=== PATIENT | male | born 1960 | race Caucasian/White ===

== ENCOUNTER 2017-09-13 14:37 | Emergency (ER) | payer MEDICARE, MEDICAID ==
[~2017-09-13] VITALS: Ht 172.7 cm; Wt 90.7 kg
[~2017-09-13 14:37] MED LIST: AMOXICILLIN500 M1 PO; APAP500; ATENOLOL 25 MG25 M1 PO; ATENOLOL 50 MG50 M1 PO; BAYER CHEWABLE81 MG PO; CELEXA20 MG PO; CYCLOBENZAPRINE5 MG PO; FLEXERIL; FLEXERIL PO; HYDROCODON-ACE1 EAC7 PO; KEFLEX500 M1 PO; LASIX 40 MG TAB40 M1 PO; LEVAQUIN 500 M500 M2 PO; LEVOTHYROXIN0.125 M1 PO; LIORESAL 10 MG10 MG PO; LISINOPRIL10 MG PO; LISINOPRIL20 MG PO; LISINOPRIL40 MG PO; NEXIUM40 MG PO; NOHOMEMEDICATIONS; NORCO 5-325 TA1 EACH PO; NORVASC 5 MG TAB5 MG PO; NORVASC10 MG PO; OXYCONTIN60 MG PO; PERCOCET; PERCOCET 10-321 EACH; PERCOCET 5-3251 EACH PO; PERCOCET PO; PREDNISONE 20 M20 M1 PO; PROAIR HFA8.5 GM INH; ROBAXIN500 MG PO; TYLENOL EXTRA500 MG PO; VENTOLIN HFA 1818 GM INH; VICOPROFEN 2001 EACH PO; XANAX 0.25 MG0.25 MG PO; ZESTRIL20 MG PO; ZPAK PO
[2017-09-13 16:02] VITALS: BP 156/99
== END 2017-09-13 16:03 | disposition home or self-care (01) ==
LOC: M.ERS 14:37
DX: S70.01XA Contusion of right hip, initial encounter (principal); K43.9 Ventral hernia without obstruction or gangrene; G89.29 Other chronic pain; M54.9 Dorsalgia, unspecified; I10 Essential (primary) hypertension; F41.9 Anxiety disorder, unspecified; Z88.6 Allergy status to analgesic agent; Z90.49 Acquired absence of other specified parts of digestive tract; Z88.8 Allergy status to other drugs, medicaments and biological substances; W18.39XA Other fall on same level, initial encounter; Y93.89 Activity, other specified; Y92.89 Other specified places as the place of occurrence of the external cause; Y99.8 Other external cause status

== ENCOUNTER 2017-09-18 14:20 | Emergency (ER) | payer MEDICARE, MEDICAID ==
[~2017-09-18] VITALS: Ht 177.8 cm; Wt 99.8 kg
[2017-09-18] MEDS ORDERED: NORCO 5-325 TA1 EAC1 PO (15:00)
[2017-09-18 15:08] VITALS: BP 140/97
== END 2017-09-18 15:10 | disposition home or self-care (01) ==
LOC: M.ERS 14:20
DX: K64.5 Perianal venous thrombosis (principal); I10 Essential (primary) hypertension; I25.2 Old myocardial infarction; F41.9 Anxiety disorder, unspecified; G89.29 Other chronic pain; F10.99 Alcohol use, unspecified with unspecified alcohol-induced disorder; Z98.890 Other specified postprocedural states; Z98.84 Bariatric surgery status; Z96.641 Presence of right artificial hip joint; Z88.5 Allergy status to narcotic agent; Z88.8 Allergy status to other drugs, medicaments and biological substances

== ENCOUNTER 2017-09-20 13:41 | Emergency (ER) | payer MEDICARE, MEDICAID ==
[~2017-09-20] VITALS: Ht 182.9 cm; Wt 90.7 kg
[~2017-09-20 13:41] MED LIST changes: +NORCO 5-325 TA1 EAC1 PO
[2017-09-20] MEDS ORDERED: HYDROCODON-ACE1 EAC7 PO (14:35)
[2017-09-20 15:11] VITALS: BP 138/88
== END 2017-09-20 15:12 | disposition home or self-care (01) ==
LOC: M.ERS 13:41
DX: K64.5 Perianal venous thrombosis (principal); I10 Essential (primary) hypertension; I25.2 Old myocardial infarction; F41.9 Anxiety disorder, unspecified; Z98.84 Bariatric surgery status; G89.29 Other chronic pain; F10.99 Alcohol use, unspecified with unspecified alcohol-induced disorder; Z98.890 Other specified postprocedural states; Z96.641 Presence of right artificial hip joint; Z88.5 Allergy status to narcotic agent; Z88.8 Allergy status to other drugs, medicaments and biological substances

== ENCOUNTER 2017-10-06 18:12 | Emergency (ER) | payer MEDICARE, MEDICAID ==
[~2017-10-06] VITALS: Ht 177.8 cm; Wt 90.8 kg
[2017-10-06 18:47] LABS: ABSOLUTE BASOPHILS 0.1 thou/uL (0.0-0.2); ABSOLUTE EOSINOPHILS 0.2 thou/uL (0.0-0.7); ABSOLUTE LYMPHOCYTES 1.4 thou/uL (0.8-5.3); ABSOLUTE MONOCYTES 0.9 thou/uL (0.0-1.2); ABSOLUTE NEUTROPHILS 6.4 thou/uL (1.6-8.1); BASOPHILS 0.9 %; EOSINOPHILS 2.6 %; HEMATOCRIT 36.6 % (42.0-52.0); HEMOGLOBIN 11.4 gm/dL (14.0-18.0); LYMPHOCYTES 15.3 %; MCH 21.6 pg (26.0-34.0); MCHC 31.1 g/dL (28.0-37.0); MCV 69.4 fL (80.0-100.0); MONOCYTES 10.2 %; MPV 7.4 fl. (7.2-11.1); NUCLEATED RBCS 0 /100WBC; PLATELET COUNT* 282 thou/uL (150-400); RBC 5.27 mil/uL (4.50-6.00); RDW-CV 18.5 % (10.5-14.5)
[2017-10-06] MEDS ORDERED: CLONIDINE0.1 PO (18:50)
[2017-10-06 18:54] LABS: ANION GAP 10 mmol/L (7-16); BUN 15 mg/dL (7-18); CALCIUM 8.5 mg/dL (8.5-10.1); CHLORIDE 97 mmol/L (98-107); CO2 27 mmol/L (21-32); CREATININE 0.9 mg/dL (0.6-1.3); GLUCOSE 98 mg/dL (70-99); POTASSIUM 4.1 mmol/L (3.5-5.1); SODIUM 134 mmol/L (136-145)
[2017-10-06 19:08] LABS: URINE BILIRUBIN NEGATIVE (Negative); URINE BLOOD NEGATIVE (Negative); URINE CLARITY CLEAR; URINE COLOR YELLOW; URINE GLUCOSE-RANDOM NEGATIVE (Negative); URINE KETONES NEGATIVE (Negative); URINE LEUKOCYTES-REFLEX NEGATIVE (Negative); URINE NITRITE-REFLEX NEGATIVE (Negative); URINE PROTEIN NEGATIVE (Negative); URINE SPECIFIC GRAVITY 1.015 (1.005-1.030); URINE UROBILINOGEN 0.2 E.U./dl (0.2-1.0)
[2017-10-06 19:15] LABS: ALBUMIN 3.5 g/dL (3.4-5.0); ALKALINE PHOSPHATASE 103 U/L (46-116); SGOT 23 U/L (15-37); SGPT 17 U/L (30-65); TOTAL BILIRUBIN 0.9 mg/dL (<0.1-1.0); TOTAL PROTEIN 7.9 g/dL (6.4-8.2); TROPONIN-I LEVEL <0.06 ng/mL (<0.06)
[2017-10-06 19:17] LABS: AMP/METHAMP Negative (Negative); BARBITURATES Negative (Negative); BENZODIAZEPINES Negative (Negative); COCAINE Negative (Negative); METHADONE Negative (Negative); OPIATES Negative (Negative); PCP Negative (Negative); THC Negative (Negative)
[2017-10-06 19:22] LABS: ANISOCYTOSIS 1+; HYPOCHROMASIA 1+; MICROCYTES 1+; PLATELET ESTIMATE ADEQUATE
[2017-10-06] MEDS ORDERED: IBUPROFEN 800800 MG PO (20:35)
[2017-10-06] MEDS ORDERED: NORCO 5-325 TA1 EACH PO (20:35)
[2017-10-06 20:57] VITALS: BP 150/96
--- NOTE | 2017-10-07 11:02 | EKG ---
[place] [address] ELECTROCARDIOGRAM REPORT Name: RYAN ABRAHAM Room: [facility]#: [id number] Admission: 10/06/17 Attend Phys: Discharge: 10/06/17 Date of : 60 Report #: [id number] THIS REPORT FOR: //name// [facility] ED Test Date: 2017-10-06 Test Time: 18:37:41 Pat Name: RYAN ABRAHAM Department: Room: Gender: Pearl Glue Operator: William LACEY : 1960 Requested By: Josiane Wesley Order Number: [id number] MD: Christian Coe Measurements Intervals [place] Rate: 57 P: 39 MN: 196 QRS: 4 QRSD: 88 T: 125 QT: 446 QTc: 435 Interpretive Statements Sinus rhythm LVH with secondary repolarization abnormality Anterior ST elevation, probably due to LVH Baseline wander in lead(s) V2 Compared to ECG 06/17/2014 22:50:48 Left ventricular hypertrophy now present Early repolarization now present ST (T wave) deviation now present Sinus tachycardia no longer present Electronically Signed On 10-07-2017 11:02:30 DIRECTOR OF ANALYTICS by Christian Coe [email or web address] <ELECTRONICALLY SIGNED> By: Christian Coe MD, [facility] 10/07/17 1102 1837 1837 Christian Coe MD, [facility] /EPI
== END 2017-10-06 20:59 | disposition home or self-care (01) ==
LOC: M.ERS 18:12
PROVIDERS: Nurse Practitioner Family
DX: I95.1 Orthostatic hypotension (principal); M25.562 Pain in left knee; I25.2 Old myocardial infarction; I10 Essential (primary) hypertension; F41.9 Anxiety disorder, unspecified; Z86.73 Personal history of transient ischemic attack (TIA), and cerebral infarction without residual deficits; Z90.49 Acquired absence of other specified parts of digestive tract; Z96.641 Presence of right artificial hip joint

== ENCOUNTER 2018-05-06 14:59 | Inpatient (IN) | payer MEDICARE, MEDICAID ==
[~2018-05-06] VITALS: Ht 152.4 cm; Wt 108.9 kg
[~2018-05-06 14:59] MED LIST changes: +CLONIDINE0.1 PO; +IBUPROFEN 800800 MG PO
[2018-05-06 15:06] VITALS: BP 150/81
[2018-05-06 15:24] LABS: ABSOLUTE MONOCYTES 1.9 thou/uL (0.0-1.2); ABSOLUTE NEUTROPHILS 6.8 thou/uL (1.6-8.1); BASOPHILS 0.5 %; HEMATOCRIT 35.6 % (42.0-52.0); HEMOGLOBIN 11.2 gm/dL (14.0-18.0); LYMPHOCYTES 10.3 %; MCH 23.5 pg (26.0-34.0); MCHC 31.4 g/dL (28.0-37.0); MCV 74.7 fL (80.0-100.0); MONOCYTES 19.8 %; MPV 6.5 fl. (7.2-11.1); NUCLEATED RBCS 0 /100WBC; PLATELET COUNT* 323 thou/uL (150-400); POLYS 69.4 %; RBC 4.77 mil/uL (4.50-6.00); RDW-CV 19.3 % (10.5-14.5); WBC 9.9 thou/uL (4.0-11.0)
--- NOTE | 2018-05-06 15:30 | NUR ---
CALL RECEIVED FROM WOMAN WHO SAYS SHE IS MR. ABRAHAM'S JIM, STATES PT IS TEXTING HER THAT HE IS BEING ARRESTED RIGHT NOW AT [facility]. JIM STATES PT ALSO WAS PARANOID PRIOR TO CALLING EMS, TOLD HIS HOTEL ROOM WAS SURROUNDED BY POLICE. JIM STATES SHE IS OUT OF TOWN AND SHE THINKS PT HAS NOT BEEN TAKING MEDICATIONS LIKE HE IS SUPPOSED TO. DISCUSSED W/ PT HIS THOUGHTS THAT POLICE ARE HERE. PT STATES THE POLICE ARE OUTSIDE HIS E.D. ROOM AND HE IS GOING TO BE ARRESTED. HALLUCINATING & PARANOID. PT REASSURED THAT HE IS NOT BEING ARRESTED. AAOX4. REPORTED TO DR. FISHER.
[2018-05-06 15:35] LABS: ANION GAP 14 mmol/L (7-16); BUN 12 mg/dL (7-18); CALCIUM 8.2 mg/dL (8.5-10.1); CHLORIDE 91 mmol/L (98-107); CO2 24 mmol/L (21-32); CREATININE 0.8 mg/dL (0.6-1.3); GLUCOSE 100 mg/dL (70-99); SODIUM 129 mmol/L (136-145)
[2018-05-06 15:39] LABS: APTT 24.8 Seconds (25.0-31.3); PROTIME 10.7 Seconds (9.20-11.50)
[2018-05-06 15:50] LABS: ALBUMIN 3.7 g/dL (3.4-5.0); ALKALINE PHOSPHATASE 102 U/L (46-116); LIPASE 197 U/L (73-393); NT-PRO BRAIN NAT PEPTIDE 1279 pg/mL (<300); SGOT 47 U/L (15-37); SGPT 32 U/L (30-65); TOTAL BILIRUBIN 1.6 mg/dL (<0.1-1.0); TOTAL PROTEIN 8.8 g/dL (6.4-8.2); TROPONIN-I LEVEL <0.06 ng/mL (<0.06)
[2018-05-06 17:06] LABS: AMP/METHAMP POSITIVE (Negative); BARBITURATES Negative (Negative); BENZODIAZEPINES Negative (Negative); COCAINE Negative (Negative); METHADONE Negative (Negative); OPIATES Negative (Negative); PCP Negative (Negative); THC Negative (Negative)
--- NOTE | 2018-05-06 17:30 | NUR ---
PT C/O HE WANTS TO "END IT ALL". WHEN PT ASKED IF HE IS SUICIDAL HE REPLIES "YES". REPORTED TO DR. FISHER. SUICIDE PRECAUTIONS STARTED.
--- NOTE | 2018-05-06 19:34 | NUR ---
CALLED PT'S , JIM AND NOTIFIED HER OF PT'S ADMISSION
[2018-05-06 19:35] VITALS: BP 136/81
[2018-05-06 20:00] VITALS: BP 155/96
[2018-05-06 23:59] VITALS: BP 127/68
[2018-05-07 04:00] VITALS: BP 130/86
--- NOTE | 2018-05-07 05:50 | NUR ---
PT AAOX4 RESP REG AND UNALBORED SKIN W/E WAS ADMITTED FROM ER. PT MOVED SELF TO HOSPITAL BED WITHOUT DIFFICULTY. VSS. PT ORIENTED TO ROOM CALL SYSTEM AND BED CONTROLS AND VERBALIZED GOOD UNDERSTANDING. SAFETY HAZARDS REMOVED FROM ROOM, SITTER AT BEDSIDE. PT STATES HE IS VERY DEPRESSED, AND FEELS UNSAFE TO RETURN HOME AT THIS TIME. VSS AND NO ACUTE CHANGES DURIGN SHIFT WILL CONTINUE OT MONITOR. TELEMETRY PACK APPLIED WITH ALARMS ON
[2018-05-07 08:00] VITALS: BP 147/81
--- NOTE | 2018-05-07 10:00 | NUR ---
ASSUMED PT CARE AT 0730, FULL ASSESMENT DONE CHARTED. PT A/O X4, VERY ANXIOUS, REQUESTING MEDS FOR ANXIETY, PT STATES HE "IS STILL HAVING THE SAME THOUGHTS WHEN HE CAME IN". WHEN PT ASKED IF HE IS THINKING OF HURTING HIMSELF, HE STATES"YES BY HANGING MYSELF". PT ADMITS TO PLANNING ON IT. PT HAS SITTER 1:1 FOR SAFTY. CARDIOLOGY CONSULT DONE, PT SENT TO STRESS TESTING, ECHO PLANNED FOR THIS AFTERNOON. TELE PSYC TO BE DONE ALSO. WILL CONTINUE TO MONITOR.
--- NOTE | 2018-05-07 11:06 | NUR ---
Pt is A&O. Resides at home. Independent with ADLs. Pt has a cane that he can use for mobility. Pt has a home cpap. Scheduled to have stress test and echo. Sitter in room at bedside for SI. Psych to assess. CM to assist with disposition as needed.
[2018-05-07 12:47] LABS: CALCIUM 8.3 mg/dL (8.5-10.1); CREATININE 0.9 mg/dL (0.6-1.3); POTASSIUM 3.4 mmol/L (3.5-5.1)
--- NOTE | 2018-05-07 12:50 | CARDNUC ---
[place] [address] CARDIAC NUCLEAR IMAGING REPORT Name: RYAN ABRAHAM Room: [address] IN [facility]#: [id number] Admission: 05/06/18 Attend Phys: Maximo Ellis, Discharge: Date of : 60 Date of Service: 05/07/18 1249 Report #: [id number] THIS REPORT FOR: //name// APPROVED REPORT Imaging Protocol: Stress Tc-99m Study performed: 05/07/2018 08:16:00 Indication: chest pain, dyspnea Patient Location: Out-Patient Stress Tech: Fabiana Campo Stress Nurse: Madelyn Pereyra RN Ht: 5 ft 10 in Wt: 240 lbs BSA: 2.26 m2 BMI: 34.4 Medical History Medical History: mi, pci, hypertesnion,meth abuse Medications: no cardiac meds Allergies: tramadol trazodaone darvocet Cardiac Risk Factors: age, hypertension, family hx Previous Cardiac Procedures: pci Exercise History: Indeterminate Pharmacologic Stress Pharmacologic stress test was performed by injecting Regadenoson 0.4 mg IV push over 10-15 seconds immediately followed by the intravenous injection of 34.6 mCi of Tc-99m Sestamibi. Time of stress injection: 1030 Administration Route: IV Administration Site: Right AC Gated Stress SPECT was performed 45 minutes after stress injection. The images were gated to evaluate regional wall motion and calculate left ventricular ejection fraction. Prone imaging was performed. Stress Test Details Stress Test: Pharmacologic stress testing performed using 0.4 mg of regadenoson per 5 mL given IV over 10 seconds. HR Max Heart Rate (APMHR): 162 bpm Resting HR: 93 bpm Target HR (85% APMHR): 137 bpm Max HR Achieved: 122 bpm % of APMHR: [address] [place] [address] CARDIAC NUCLEAR IMAGING REPORT Name: RYAN ABRAHAM Room: [address]#: [id number] Admission: 05/06/18 Attend Phys: Maximo Ellis, Discharge: Date of : 60 Date of Service: 05/07/18 1249 Report #: [id number] Recovery HR: 120 bpm HR response to stress: Normal HR response to stress BP Resting BP: 149/100 mmHg Recovery BP: 144/85 mmHg BP response to stress: Normal blood pressure response to stress. ECG Resting ECG: Sinus Rhythm Stress ECG: Sinus Rhythm Recovery ECG: Sinus Rhythm Clinical Reason for Termination: Completed protocol Stress Symptoms: None Exercise duration: 0 min sec Exercise capacity: 1 METs Stress ECG Conclusion negative for ischemia Study Quality Study: Good Artifact: No artifact Study Data Post stress, the left ventricular ejection was 53%.. Perfusion Stress only SPECT images are normal in supine and prone positions, without any perfusion defects. Images were reviewed using [employer] Wall Motion normal all segments Nuclear Conclusion ECG Findings: negative for ischemia Clinical Findings: negative for ischemia Nuclear Findings: negative for ischemia Exercise Capacity: not assessed Left Ventricular Function: normal Risk Study: low [address] [address] CARDIAC NUCLEAR IMAGING REPORT Name: RYAN ABRAHAM Room: [address]#: [id number] Admission: 05/06/18 Attend Phys: Mxaimo Ellis, Discharge: Date of : 60 Date of Service: 05/07/18 1249 Report #: [id number] Negative perfusion nuclear stress test for ischemia Interpreted by: mm Electronically Approved: mm <Conclusion> negative for ischemia <ELECTRONICALLY SIGNED> By: Israel Villalobos MD, FACC 05/07/18 1249 1249 124 Israel Villalobos MD, FACC /INF
[2018-05-07 12:56] VITALS: BP 150/88
--- NOTE | 2018-05-07 13:44 | 2DMMODE ---
[place] [address] 2 D/M-MODE ECHOCARDIOGRAM Name: RYAN ABRAHAM Room: [address] IN [facility]#: [id number] Admission: 05/06/18 Attend Phys: Maximo Ellis, Discharge: Date of : 60 Date of Service: 05/07/18 1343 Report #: [id number] THIS REPORT FOR: //name// APPROVED REPORT Study performed: 05/07/2018 10:43:38 EXAM: Comprehensive 2D, Doppler, and color-flow Echocardiogram Patient Location: In-Patient Room #: [facility] Status: routine BSA: 2.26 HR: 98 bpm BP: 130/86 mmHg Rhythm: NSR Other Information Study Quality: Good Indications Chest Pain 2D Dimensions LVEF(%): 82.15 (>50%) IVSd: 13.04 (7-11mm) LVOT Diam: 21.03 (18-24mm) LVDd: 45.18 mm PWd: 11.87 (7-11mm) Ascending Ao: 35.95 (22-36mm) LVDs: 22.24 (25-40mm) Aortic Root: 34.61 mm Agarwal's LVEF: 82.15 % Volumes Left Atrial Volume (Systole) LA ESV Index: 30.70 mL/m2 Aortic Valve AoV Peak Ankit.: 1.94 m/s AO Peak Gr.: 15.01 mmHg LVOT Max P.56 mmHg AO Mean Gr.: 8.59 mmHg LVOT Mean P.16 mmHg LVOT Max V: 1.77 m/s AO V2 VTI: 28.02 cm LVOT Mean V: 1.13 m/s JIMBO (VTI): 3.46 cm2 LVOT V1 VTI: 27.86 cm Mitral Valve E/A Ratio: 0.52 [place] [address] 2 D/M-MODE ECHOCARDIOGRAM Name: RYAN ABRAHAM Room: [address] IN [facility]#: [id number] Admission: 05/06/18 Attend Phys: Maximo Ellis, Discharge: Date of : 60 Date of Service: 05/07/18 1343 Report #: [id number] MV Decel. Time: 95.31 ms MV E Max Ankit.: 0.62 m/s MV PHT: 27.64 ms MVA (PHT): 7.96 cm2 TDI E/Lateral E': 7.75 E/Medial E': 6.20 Medial E' Ankit.: 0.10 m/s Lateral E' Ankit.: 0.08 m/s Pulmonary Valve PV Peak Ankit.: 1.04 m/s PV Peak Gr.: 4.34 mmHg Tricuspid Valve RAP Estimate: 5.00 mmHg TR Peak Gr.: 22.95 mmHg RVSP: 27.95 mmHg PA Pressure: 27.95 mmHg Left Ventricle The left ventricle is normal size. There is normal LV segmental wall motion. Mild concentric left ventricular hypertrophy. Left ventricular systolic function is normal. The left ventricular ejection fraction is within the normal range. LVEF is 65-70%. Grade I - abnormal relaxation pattern. Right Ventricle The right ventricle is normal size. The right ventricular systolic function is normal. Atria The left atrium size is normal. The right atrium size is normal. Aortic Valve Mild aortic valve sclerosis. No aortic regurgitation is present. There is no aortic valvular stenosis. Mitral Valve The mitral valve is normal in structure. There is no mitral valve regurgitation noted. No evidence of mitral valve stenosis. Tricuspid Valve The tricuspid valve is normal in structure. Trace tricuspid regurgitation. No pulmonary hypertension[place] [address] 2 D/M-MODE ECHOCARDIOGRAM Name: LEIGHRYAN Maria Esther Room: [address]#: [id number] Admission: 05/06/18 Attend Phys: Maximo Ellis, Discharge: Date of : 60 Date of Service: 05/07/18 1343 Report #: [id number] The pulmonary valve is normal in structure. There is no pulmonic valvular regurgitation. Great Vessels The aortic root is normal in size. IVC is normal in size and collapses with >50% inspiration Pericardium There is no pericardial effusion. <Conclusion> The left ventricle is normal size. Mild concentric left ventricular hypertrophy. Left ventricular systolic function is normal. The left ventricular ejection fraction is within the normal range. LVEF is 65-70%. Grade I - abnormal relaxation pattern. The right ventricle is normal size. The left atrium size is normal. Mild aortic valve sclerosis. No aortic regurgitation is present. There is no aortic valvular stenosis. The mitral valve is normal in structure. The tricuspid valve is normal in structure. IVC is normal in size and collapses with >50% inspiration There is no pericardial effusion. There is normal LV segmental wall motion. <ELECTRONICALLY SIGNED> By: Carlos Lozano MD, FACC 05/07/18 1343 1343 1343 Carlos Lozano MD, FACC /INF
--- NOTE | 2018-05-07 13:54 | EKG ---
[place] [address] ELECTROCARDIOGRAM REPORT Name: RYAN ABRAHAM Room: [address] ADM IN [facility]#: [id number] Admission: 05/06/18 Attend Phys: Maximo Ellis MD Discharge: Date of : 60 Report #: [id number] THIS REPORT FOR: //name// [facility] ED Test Date: 2018-05-06 Test Time: 15:02:37 Pat Name: RYAN ABRAHAM Department: Room: [facility] Gender: Geospatial Specialist: William LACEY : 1960 Requested By: Rebekah Huynh Order Number: [id number] MD: Carlos Lozano Measurements Intervals [place] Rate: 82 P: 43 ID: [id number] QRS: 1 QRSD: 94 T: 128 QT: 397 QTc: 464 Interpretive Statements Sinus rhythm LVH with secondary repolarization abnormality Anterior Q waves, possibly due to LVH Compared to ECG 10/06/2017 18:37:41 Q waves now present ST (T wave) deviation no longer present Electronically Signed On 05-07-2018 13:53:54 CDT by Carlos Lozano [email or web address] <ELECTRONICALLY SIGNED> By: Carlos Lozano MD, [facility] 05/07/18 1353 1502 1502 Carlos Lozano MD, [facility] /EPI
--- NOTE | 2018-05-07 16:03 | NUR ---
SEASONAL DRIVER ATTEMPTED TO INITIATE REFERRAL FOR INPATIENT PSYCH WITH [facility] AND SPOKE TO CECE AND SHE INFORMS 'WE'RE FULL'. [facility] AND SPOKE TO KATHERINE AND SHE INFORMS 'NO BEDS AVAILABLE, BUT IF YOU NEED A SR. BED PLEASE CALL BACK'. [facility] AND SPOKE TO DEIDRE AND SHE INFORMS 'NO BEDS AVAILABLE'. [facility] AND SPOKE TO BABS AND SHE INFORMS THAT 'THE FACILTY HAS BEDS AVAILABLE AND WILL REVIEW THE REFERRAL AND RETURN CALL'. SEASONAL DRIVER ALSO PAGED THE [facility] PAGER AND AM AWAITING A RETURN CALL TO DISCUSS BED AVIALABILITY. CM WILL REMAIN AVAILABLE TO ASSIST AND FOLLOW NEEDED.
[2018-05-07 16:30] VITALS: BP 129/86
--- NOTE | 2018-05-07 18:55 | NUR ---
PT LESS ANXIOUS THIS EVENING, WAS GIVEN IV ATIVAN PRN PER OCT. PT HAD TELE PSYC CONSULT, PLACEMENT TO IN PATIENT PSYC BEING WORKED ON. SITTER WITH PT FOR SAFTY. PT VERBALIZES NEEDS APPROPRIALTY. WILL CONTINUE TO MONITOR.
[2018-05-07 19:35] VITALS: BP 149/91
[2018-05-08] VITALS: BP 130/83
[2018-05-08 04:00] VITALS: BP 130/55; BP 142/86
--- NOTE | 2018-05-08 04:55 | NUR ---
PT AAOX4 RESP REG AND UNLABORED SKIN W/D. NO ACUTE DISTRESS NOTED. SITTER REMAINS AT BEDSIDE. TELEMETRY PACK INTACT WITH [facility]AR[facility] SET. PT STATES HE STLL FEELS ANXIOUS AND HAVING THOUGHTS OF HURTING HIMSELF. PT WAS ABLE TO SLEEP FOR PART OF SHIFT. VSS AND NO ACUTE CHANGES NOTED. TP DENIES CHEST PAIN AND SOB AT THIS TIME. WILL CONTINUE TO MONITOR
[2018-05-08 08:00] VITALS: BP 123/73
--- NOTE | 2018-05-08 10:13 | NUR ---
AIRPLANE RENTAL CLERK SPOKE TO EULA WITH [facility] AND SHE INFORMS THAT 'THE FACILITY IS FULL AT THIS TIME, TO CHECK BACK AFTER NOON, AND THEY MAY HAVE A BED AT THAT TIME'. FRACISCO WITH [facility] INFORMS 'THE FACILITY IS PLANNING DISCHARGES THIS AFTERNOON. AIRPLANE RENTAL CLERK SENT [facility] PATIENT'S CLINICAL INFO. INTAKE [facility] INFORMS 'THE FACILITY HAS LIMITED AVAILABILITY, BUT WILL REVIEW THE REFERRAL. GI WITH [facility] INFORMS THAT 'THE FACILITY DOES HAVE BED AVAILABILITY, IS CURRENTLY REVIEWING TWO REFERRALS. PLEASE ALLOW TIME TO REVIEW YOUR REFERRAL, AND WILL RETURN CALL SOON POSSIBLE'. CM WILL REMAIN AVIALABLE TO ASSIST AND FOLLOW NEEDED.
[2018-05-08 12:00] VITALS: BP 124/80
[2018-05-08 16:00] VITALS: BP 138/75
--- NOTE | 2018-05-08 16:04 | NUR ---
GRAPHIC DESIGN TEACHER RECIEVED A RETURN CALL FROM [facility] WITH [facility] AND SHE INFORMS THAT THE PHYSICIAN IS REQUESTING A PROGRESS NOTE THAT INDICATES THAT THE PATIENT IS MEDICALLY STABLE, [facility], AND VITAL SIGNS, AND . PROVIDED [facility] ALL REQUESTED INFO. PROVIDED [facility] WITH THE NURSES STATION PHONE NUMBER TO FOLLOW-UP WITH AFTER 1630. PROVIDED THE RN IN-CHARGE OF THE PATIENT WITH PATIENT TRANSFER FORM AND EMTALA FORM. CM WILL REMAIN AVAILABLE TO ASSIST AND FOLLOW NEEDED. [facility] PHONE: [phone] FAX: [phone]
--- NOTE | 2018-05-08 17:57 | NUR ---
PT APPEARS LESS ANXIOUS THIS AFTERNOON, PO ATIVAN ORDERED, PT GIVEN HYDROCODONE WITH SOME PAIN RELIEF. REFERRAL TO [facility]. PT UPDATED. WILL CONTINUE TO MONITORL.
[2018-05-08 20:00] VITALS: BP 128/76
--- NOTE | 2018-05-08 20:00 | NUR ---
RECEIVED REPORT AND ASSUMED CARE OF PT, ASSESSMENT COMPLETED. PT C/O CONT CHEST PAIN. WILL GIVE MEDS WHEN TIME ABLE. TELEMETRY ON SHOWING SR. REMAINS 1:1 OBSERVATION. WILL CONT TO MONITOR AND ASSIST NEEDED.
[2018-05-09] VITALS: BP 120/74
[2018-05-09 04:00] VITALS: BP 145/84
--- NOTE | 2018-05-09 06:34 | NUR ---
SLEPT WELL TONIGHT WITH SITTER AT BEDSIDE. GAIT STEADY TO AND FROM BR. NO CHANGE IN ASSESSMENT. TELEMETRY SHOWING SR. HS GOALS OF REST AND SAFETY ACHIEVED. HOURLY ROUNDING OBSERVED ALONG WITH THE SITTER.
[2018-05-09 09:00] VITALS: BP 126/71
--- NOTE | 2018-05-09 11:03 | NUR ---
IRRIGATION EQUIPMENT REMOVER SPOKE TO [facility]TAKE WITH [facility] TO DISCUSS BED AVAILABILTY FOR INPATIENT PSYCH. [facility] INFORMS 'NO BEDS AVAILABLE'. [facility] 'DECLINED DUE TO MEDICAL ACQUITY'. [facility] 'AT [place], NO BEDS AVAILABLE'. [facility] 'NO BEDS AVAILABLE'. [facility] 'NO BEDS AVAILABLE'. [facility] INTA[facility] 'DECLINED DUE TO CAPABILITY, NOT ENOUGH STAFFING'. INTAKE WITH [facility] 'AT [facility], NO BEDS AVAILABLE'. IRRIGATION EQUIPMENT REMOVER SPOKE TO INTAKE WITH [facility], AND FAXED INPATIENT PSYCH REFERRAL. [place] INFORMS THAT THEY 'SHOULD HAVE DISCHARGES AFTER NOON'. INTAKE WITH [facility] THAT THEY 'SHOULD HAVE DISCHARGES AFTER NOON, AND TO CALL BACK TO DISCUSS BED AVAILABILITY'. CM WILL REMAIN AVAILABLE TO ASSIST AND FOLLOW NEEDED.
[2018-05-09 11:05] VITALS: BP 130/75
--- NOTE | 2018-05-09 12:07 | NUR ---
ASSUMED PT CARE AT 0700 PT IS ALERT AND ORIENTED X 4 PT IS UP AD FABBY PT IS NOT A FALL RISK, PT C/O PAIN GAVE PAIN MEDS REASSESSED PT WHO STATES PAIN MEDS HELPED, PT DENIES CHEST PAIN OR SOA, PT IS SR ON THE MONITOR, PT HAS NOT STATED ANY THREATS OF SUICIDE TO THIS NURSE PT HAS SITTER IN ROOM, PT IS PLEASANT AND COOPERATIVE AND CALM, TALKED WITH CASE MANAGEMENT AND PHYSICIAN WE ARE AWAITING [facility] TO CALL BACK FOR PLACEMENT CARDIOLOGY AND HOSPITALIST STATE PT IS STABLE FOR DISCHARGE, WILL CONTINUE TO MONITOR
--- NOTE | 2018-05-09 13:22 | NUR ---
Nutrition: Pt admitted SI, chest pain. 1:1 sitter in room. Behavioral health tray. Pt stated his usual wt is 230#. K+ 3.4, alb 3.7. RD offered nutrition education/info to pt, which he refused. Chart reviewed. Consider low nutrition risk.
[2018-05-09 16:15] VITALS: BP 120/66
[2018-05-09] MEDS ORDERED: ATIVAN1 M1 PO (16:21)
[2018-05-09] MEDS ORDERED: MELATONIN5 M1 PO (16:22)
[2018-05-09] MEDS ORDERED: REMERON15 MG PO (16:22)
[2018-05-09] MEDS ORDERED: TYLENOL325 MG PO (16:23)
[2018-05-09 16:24] VITALS: BP 120/66
--- NOTE | 2018-05-09 16:35 | NUR ---
PHYSICIAN/ALLERGY/IMMUNOLOGY SPOKE TO INTAKE WITH [facility] AND SHE INFORMS THAT THE FACILITY IS ABLE TO ACCEPT THE PATIENT TO THEIR BEHAVIORAL HEALTH UNIT. ACCEPTING PHYSICIAN: DR CARRASCO, AND ROOM NUMBER [id number]. PHYSICIAN/ALLERGY/IMMUNOLOGY SPOKE TO [facility] TO SETUP TRNASP[facility] AND THE TRANSPORT HAS BEEN REFERRED TO [facility] DUE TO DISTANCE. [facility] CONFIRMS ACCEPTANCE OF THE TRANSPORT AND WILL PROVIDE TRANSPORT BETWEEN 1730 AND 1800. PHYSICIAN/ALLERGY/IMMUNOLOGY SPOKE TO PATIENT AND HIS SPOUSE TO INFORM OF THE PATIENT'S TRANSFER AND ROOM NUMBER. PATIENT AND SPOUSE IN AGREEMENT. CM WILL REMAIN AVAILABLE TO ASSIST AND FOLLOW NEEDED.
== END 2018-05-09 18:04 | DRG 313 ==
LOC: M.ERS 14:59 → M.2W 18:58 → M.TBA-ER 18:58 → M.2W 19:43
PROVIDERS: Internal Medicine; Personal Emergency Response Attendant; ADMIT Internal Medicine
DX: R07.89 Other chest pain (principal); R45.851 Suicidal ideations; Z68.42 Body mass index [BMI] 45.0-49.9, adult; E87.1 Hypo-osmolality and hyponatremia; F41.9 Anxiety disorder, unspecified; F32.9 Major depressive disorder, single episode, unspecified; K21.9 Gastro-esophageal reflux disease without esophagitis; E86.0 Dehydration; E66.9 Obesity, unspecified; E87.5 Hyperkalemia; I10 Essential (primary) hypertension; Z96.641 Presence of right artificial hip joint; I25.2 Old myocardial infarction; Z86.73 Personal history of transient ischemic attack (TIA), and cerebral infarction without residual deficits; Z90.49 Acquired absence of other specified parts of digestive tract; Z79.82 Long term (current) use of aspirin; Z79.899 Other long term (current) drug therapy; Z88.8 Allergy status to other drugs, medicaments and biological substances